=== PATIENT | male | born 1990 | race Two or more races ===

== ENCOUNTER 2020-01-10 15:26 | Emergency (ER) | payer MEDICAID ==
[~2020-01-10] VITALS: Ht 182.9 cm; Wt 87.5 kg
[2020-01-10 15:49] VITALS: Ht 182.9 cm; Wt 87.5 kg
[2020-01-10 17:44] VITALS: BP 133/84
== END 2020-01-10 17:44 | disposition home or self-care (01) ==
LOC: ED 15:26 → EDBD 15:26 → ED 17:44
DX: S93.492A Sprain of other ligament of left ankle, initial encounter (principal); X50.1XXA Overexertion from prolonged static or awkward postures, initial encounter; Y93.67 Activity, basketball; Y92.310 Basketball court as the place of occurrence of the external cause; Y99.8 Other external cause status

== ENCOUNTER 2020-01-18 14:56 | Emergency (ER) | payer MEDICAID ==
[~2020-01-18] VITALS: Ht 182.9 cm; Wt 89.4 kg
[2020-01-18 15:16] VITALS: Ht 182.9 cm; Wt 89.4 kg
[2020-01-18 17:20] VITALS: BP 134/81
== END 2020-01-18 17:20 | disposition home or self-care (01) ==
LOC: ED 14:56
DX: S93.492A Sprain of other ligament of left ankle, initial encounter (principal); X58.XXXA Exposure to other specified factors, initial encounter; Y93.64 Activity, baseball; Y92.89 Other specified places as the place of occurrence of the external cause; Y99.8 Other external cause status